=== PATIENT | male | born 1965 | race Caucasian/White ===

== ENCOUNTER 2017-04-02 14:34 | Observation (INO) | payer MEDICARE, OTHER ==
--- NOTE | ~2017-04-02 | DS ---
Unit #: [id number] #: [id number] Patient: ELISSA DAVENPORT [id number] [address] [place], [place] [address] [id number] I MR#: [id number] NAME: ELISSA DAVENPORT. ROOM: 213 Age: 51 Sex: M Admission Date: 04/02/2017 : 1965 Discharge Date: 04/03/2017 Attending Physician: Familia Mustafa M.D. Primary Care Physician: Jerald Coon M.D. DISCHARGE SUMMARY CHIEF COMPLAINT Teeth pain. HISTORY OF PRESENTING ILLNESS A 51-year-old male, who has a history of asthma, colitis, migraine, and chronic back pain, came with a complaint of teeth pain, dental pain, body aches, and abdominal pain. This started about 3 weeks ago according to the patient and it is gradually getting worse. He saw a dentist last week, was diagnosed with gingivitis, and was put on some antibiotic, but it is not getting better. The patient also complained of intermittent abdominal pain. He has been drinking beer more than normal. The patient keeps saying that he is living with his ex- and they are always fighting, and he may be poisoned. The patient's gums are swollen. He does complain of some nausea. He complains of abdominal pain, complains of joint pain, back pain, headache, no complain of diarrhea, no complain of vomiting, no complain of fever, chills, or rigors. PAST MEDICAL HISTORY 1. History of chronic pain. 2. History of asthma. 3. History of arthritis. 4. History of spondylitis. 5. History of diabetes mellitus type 2, which is borderline. 6. History of marijuana use. 7. History of sleep apnea. PAST SURGICAL HISTORY History of left knee surgery. ALLERGIES The patient is allergic to codeine, acetaminophen, Darvocet, and Imitrex. BODY AFTER ALLERGIES: FAMILY HISTORY The patient's mother has congestive heart failure. Father had CABG in his 60s. Siblings are in good health. SOCIAL HISTORY The patient is disabled, has sedentary lifestyle. He has a past history of smoking, quit some time ago. He used to drink heavily long time ago and now recently he started drinking more beer because of teeth pain. Uses marijuana off and on. Unit #: [id number] #: [id number] Patient: ELISSA DAVENPORT O HOME MEDICATIONS Humalog and . REVIEW OF SYSTEMS As per history of presenting illness. PHYSICAL EXAMINATION GENERAL: The patient is lying in bed, complaining of teeth pain. VITAL SIGNS: Blood pressure is 137/77, respiratory rate 18, pulse is 59, temperature 97.5, oxygen saturation is 97%. HEENT: Head is normocephalic. Eye movements are normal. The patient's joints are swollen. Pretty bad hygiene. I do not see any abscess, although the exam is limited. CHEST: Fair air entry. No additional sounds. CVS: S1 and S2 positive. Regular rhythm. ABDOMEN: Soft. No tenderness at this time. EXTREMITIES: Negative edema. SKIN: Needs to be normal. NEUROLOGIC: Awake, alert, oriented x3. No focal neurological deficit. DIAGNOSTIC STUDIES LABORATORY RESULTS: Done in ER shows WBC 7.4, hemoglobin 14.1, hematocrit 43.6, and platelet count of 154. Troponin less than 0.05. Sodium 137, potassium 3.9, chloride 103, bicarb 26, BUN 11, creatinine 0.7. Liver enzymes are normal. Lipase is elevated to 124 and later on in the evening 128, this morning the patient's lipase is 31, in normal range. IMAGING STUDIES: Chest x-ray was done, which shows minimal bibasilar atelectasis, otherwise negative chest. Next, CT scan of the abdomen and pelvis has been done, which shows no acute finding, no evidence for acute pancreatitis by CT, renal cyst circumferential, bladder wall thickening is similar to the previous study. HOSPITAL COURSE Mr. Elissa Davenport is a 51-year-old male, who was admitted to [facility] at med surg unit with diagnoses of; 1. Pancreatitis. 2. Gingivitis. 3. Diabetes mellitus, type 2. 4. Asthma. 5. Chronic back pain. The patient was admitted in the hospital. Dr. Ohara was consulted from [facility]. The patient's liver enzymes are normal, and lipase has come back to normal. His abdomen is soft, nontender. No peritoneal signs at all. Most likely, he had mild alcoholic pancreatitis. The patient's CT scan is normal. DISCHARGE MEDICATIONS The patient is being discharged home on following medications: 1. Augmentin 875 mg b.i.d. 2. Ultram 50 mg q.6 p.r.n. and continue rest of the home medications. The patient kept talking about arsenic poisoning. Arsenic level has been sent to the lab, but it is going to take a few days for the results to come back. The patient needs to follow up with primary care provider to get those results. DISCHARGE INSTRUCTIONS Unit #: [id number] #: [id number] Patient: ELISSA DAVENPORT The patient will be discharged home on above medications. The patient is stable. Medication as per med rec. Follow up with primary care provider in 3 to 4 days. Follow up with primary care provider for arsenic results. Follow up with dentist on Thursday. I have explained to him that it is very important for his dental hygiene and oral cavity hygiene because that is the most of the reason that patients get gingivitis. The patient is allergic to codeine. I have written a prescription for Ultram. I do not see any history of seizure disorder. Plan of care has been discussed with the patient. Dictated by... Brenda Portillo M.D. RAO/ricky TD: 04/04/2017 05:45 JOB #: [id number] DISCHARGE SUMMARY Page 1 of 1 X Brenda Portillo MD X DISCHARGE SUMMARY
--- NOTE | ~2017-04-02 | CR72 ---
[facility] A Service of [facility] RADIOLOGY TEXT RESULTS PATIENT: ELISSA RALPH LOCATION: A : 65 UNIT #: [id number] AGE: [address]: Familia Mustafa MD SEX: M ORDER DR: [id number] [facility] [address] [facility]. [place], [place] [address] [id number] I MR#: [id number] Acc #: [id number] NAME: ELISSA RALPH. : 1965 SEX: M STUDY DATE/TIME: 04/02/2017 13:30 UNIT: A ROOM: [facility] STUDY DESCRIPTION: CR Chest Single View Portable Attending Physician: Familia Mustafa M.D. Ordering Physician: Emory Ramirez M.D. Primary Care Physician: Jerald Coon M.D. MEDICAL IMAGING REPORT This report is preliminary unless electronic signature is present EXAM Portable chest 04/02/2017 INDICATION Shortness of air and chest pain that started this morning. Former smoker. FINDINGS AP portable chest compared with 02/17/2016. Cardiac and mediastinal contours are normal. There is some minimal atelectasis in the bases. The lungs otherwise are clear. No pneumothorax. There is degenerative disease in both AC joints. IMPRESSION Minimal bibasilar atelectasis, otherwise negative chest. Dictated by... Sky Sahni Jr., M.D. THIS IS AN ELECTRONICALLY VERIFIED REPORT Sky Sahni Jr., M.D. at 04/03/2017 8:52 AM JENNIFER/haylee TD: 04/02/2017 14:20 JOB #: [id number] MEDICAL IMAGING REPORT Page 1 of 1 COPY
--- NOTE | ~2017-04-02 | CT2 ---
[facility] A Service [facility] RADIOLOGY TEXT RESULTS PATIENT: ELISSA RALPH LOCATION: [facility] : [birth year] UNIT #: [id number] AGE: [address]: Familia Mustafa MD SEX: M ORDER DR: [id number] [id number] [facility]. [place], [place] [address] [id number] I MR#: [id number] Acc #: [id number] NAME: ELISSA RALPH. : 1965 SEX: M STUDY DATE/TIME: 04/03/2017 10:18 UNIT: [facility] ROOM: 213 STUDY DESCRIPTION: CT Abd and Pelv W Cont Attending Physician: Familia Mustafa M.D. Ordering Physician: Christopher Ohara M.D. Primary Care Physician: Jerald Coon M.D. MEDICAL IMAGING REPORT This report is preliminary unless electronic signature is present EXAM CT abdomen and pelvis with contrast. INDICATION Pancreatitis. Generalized abdominal pain for the past 2 months. PROCEDURE Contrast-enhanced CT of the abdomen and pelvis. This CT exam was performed with one or more of the following radiation dose reduction techniques: automatic exposure control, adjustment of mA and/or kV according to patient size, and iterative reconstruction. COMPARISON 05/06/2016 FINDINGS ABDOMEN WITH CONTRAST: Included lung bases are clear. The liver, spleen, adrenal glands, pancreas, gallbladder are unremarkable. No evidence for acute pancreatitis. There are scattered uncomplicated sigmoid diverticula. The bowel loops are nondilated. Appendix is normal. There are bilateral renal cysts, very similar to the previous study. Index cyst along the medial aspect of the right kidney measures 2.2 cm. PELVIS WITH CONTRAST: There is mild circumferential bladder wall thickening up to 6 mm. This is similar to the prior. No pelvic mass, fluid, or adenopathy. No aggressive appearing bone lesion. IMPRESSION 1. No acute findings. No evidence for acute pancreatitis by CT. 2. Renal cysts. [facility] A Service [facility] RADIOLOGY TEXT RESULTS PATIENT: ELISSA RALPH LOCATION: [facility] : 65 UNIT #: [id number] AGE: [address]: Familia Mustafa MD SEX: M ORDER DR: 3. Circumferential bladder wall thickening is similar to the previous study. May be related to component of outlet obstruction. Correlate for the possibility of cystitis. Dictated by... John Solomon M.D. THIS IS AN ELECTRONICALLY VERIFIED REPORT John Solomon M.D. at 04/06/2017 7:43 AM VINOD/thuy TD: 04/03/2017 13:35 JOB #: [id number] MEDICAL IMAGING REPORT Page 1 of 1 COPY
--- NOTE | ~2017-04-02 | CO ---
Unit #: [id number] #: [id number] Patient: ELISSA DAVENPORT [id number] [address] [place], [place] [address] [id number] I MR#: [id number] NAME: ELISSA DAVENPORT. ROOM: 213 Age: 51 Sex: M Admission Date: 04/02/2017 : 1965 Attending Physician: Familia Mustafa M.D. Primary Care Physician: Jerald Coon M.D. CONSULTATION REPORT HISTORY OF PRESENT ILLNESS Mr. Davenport is a 51-year-old white male, who complains of teeth pain and gingivitis. He has multiple allergies. He was seen in the emergency room, noted also to have nonspecific abdominal pain. He was nauseated. The patient underwent laboratory testing, which showed a slightly elevated serum lipase at 120. It was felt like he might have pancreatitis, so he was admitted thereof. He says his main issues are with his gums and mouth. He says he cannot eat or do anything except drink alcohol in order to relieve the pain. He has recently been increasing his alcohol consumption because of his gingivitis. ALLERGIES As listed per patient. MEDICATIONS He is on antacids at home. He has no other medications except he is diabetic and he is on Humalog. He has a history of asthma, but he is a smoker and as noted does drink alcohol. He denies any other illicit drug use. PHYSICAL EXAMINATION GENERAL: Cooperative, alert white male. HEENT: Clear. There is no jaundice. Pupils equal, reactive to light. CHEST: Clear. CARDIAC: Rhythm is regular. ABDOMEN: Soft, nontender. No masses. No peritoneal signs. No evidence of any surgical acute process. This patient may have mild alcoholic pancreatitis. We will check a CT scan on him. It is okay the patient may be able to be discharged. We will go ahead and put the patient on a low-fat diet after scan. Dictated by... Christopher Ohara M.D. ANAM/ricky TD: 04/04/2017 03:32 JOB #: [id number] Unit #: [id number] #: [id number] Patient: ELISSA DAVENPORT CONSULTATION REPORT Page 1 of 1 X Christopher Ohara MD CONSULTATION REPORT
--- NOTE | ~2017-04-02 | EKG ---
PATIENT: ELISSA RALPH UNIT #: [id number] Ventricular Rate: 60 BPM Atrial Rate: 60 BPM P-R Interval: 144 ms QRS Duration: 94 ms Q-T Interval: 424 ms QTC Calculation(Bezet): 424 ms P [place]: 55 degrees Calculated R [place]: 51 degrees Calculated T [place]: 32 degrees Diagnosis Line: Normal sinus rhythm Diagnosis Line: Normal ECG Diagnosis Line: When compared with ECG of 03-JUL-2015 22:02, Diagnosis Line: No significant change was found Diagnosis Line: Confirmed by BRANDON MOSQUERA MD ([id number]) on 04/05/2017 Diagnosis Line: 3:58:57 PM INTERPRETING MD: EVELINE COLEMAN
[2017-04-02 13:40] LABS: BASOPHIL% 0.6 % (0-2.5); EOSINOPHIL# 0.2 X10e3 (0-0.7); EOSINOPHIL% 2.2 % (0.0-7.0); HEMATOCRIT 43.6 % (38.0-50.0); LYMPHOCYTE# 1.8 X10e3 (1.0-3.5); LYMPHOCYTE% 24.9 % (17.0-45.0); MEAN CELL VOLUME 91.6 FL (83-96); MEAN CORPUSCULAR HEMOGLOBIN 29.5 PG (28-34); MEAN CORPUSCULAR HGB CONC 32.2 g/dL (30-36); MEAN PLATELET VOLUME 9.3 FL (6.5-11.5); MONOCYTE# 0.7 X10e3 (0-1.0); MONOCYTE% 9.4 % (3.0-12.0); NEUTROPHIL# 4.6 X10e3 (1.5-7.1); NEUTROPHIL% 62.9 % (40-75); PLATELET COUNT 154 X10e3 (140-420); RED BLOOD COUNT 4.76 X10e (3.90-5.60); RED CELL DISTRIBUTION WIDTH 13.6 % (11.0-15.5); WHITE BLOOD COUNT 7.4 X10e3 (4.0-10.5)
[2017-04-02 13:41] LABS: DIFF IND NO
[2017-04-02 14:08] LABS: ALBUMIN SERUM 4.2 g/dL (3.5-5.0); BILIRUBIN, DIRECT 0.1 mg/dL (0.0-0.2); BILIRUBIN,INDIRECT 0.4 mg/dL (0.0-0.9); BILIRUBIN,TOTAL 0.5 mg/dL (0.2-2.0); BUN/CREATININE RATIO 15.71; CALCIUM SERUM 8.8 mg/dL (8.4-10.2); CREATININE SERUM 0.7 mg/dL (0.6-1.4); GLOM FILT RATE Estimated 109.3 mL/min (>60); POTASSIUM 3.9 mmol/L (3.5-5.1); PROTEIN TOTAL SERUM 7.4 g/dL (6.0-8.3)
[2017-04-02 14:09] LABS: POC - CKMB 1.2 ng/mL (0.0-7.9); POC - TROPONIN <0.05 ng/mL (<=0.05)
[~2017-04-02 14:34] MED LIST: ALBUTEROL17 G1 IH; ALBUTEROL17 GM INH; ALBUTEROL17 GM NEB; ALPRAZOLAM PO; AUGMENTIN PO; BENZONATATE PO; CELEBREX PO; CIPRO PO; DIAZEPAM PO; ENDOCET 5-3251 EACH PO; FLEXERIL10 MG PO; FLOMAX0.4 MG PO; HUMALOG; HYDROCODONE; KLONOPIN PO; NAPROSYN500 MG PO; NORCO 7.5/325 T1 TAB PO; PERCOCET 7.5-31 EACH PO; PERCOCET PO; PHENERGAN25 MG PO; TYLOX 5/500 CAP1 CAP PO; ULTRAM PO; VALIUM10 MG PO; VIBRAMYCIN100 M1 PO
[2017-04-02 15:20] LABS: POC - CKMB 1.7 ng/mL (0.0-7.9); POC - TROPONIN <0.05 ng/mL (<=0.05)
[2017-04-02] MEDS ORDERED: HUMALOG100 UNIT/1 SUBQ (19:44)
[2017-04-03 05:49] LABS: BASOPHIL% 0.6 % (0-2.5); EOSINOPHIL# 0.2 X10e3 (0-0.7); HEMATOCRIT 42.4 % (38.0-50.0); HEMOGLOBIN 13.7 gm/dL (13.0-16.0); LYMPHOCYTE# 2.6 X10e3 (1.0-3.5); LYMPHOCYTE% 34.2 % (17.0-45.0); MEAN CELL VOLUME 91.9 FL (83-96); MEAN CORPUSCULAR HEMOGLOBIN 29.6 PG (28-34); MEAN CORPUSCULAR HGB CONC 32.2 g/dL (30-36); MEAN PLATELET VOLUME 9.5 FL (6.5-11.5); MONOCYTE# 0.6 X10e3 (0-1.0); MONOCYTE% 7.9 % (3.0-12.0); NEUTROPHIL# 4.2 X10e3 (1.5-7.1); NEUTROPHIL% 55.3 % (40-75); PLATELET COUNT 144 X10e3 (140-420); RED BLOOD COUNT 4.61 X10e (3.90-5.60); RED CELL DISTRIBUTION WIDTH 13.4 % (11.0-15.5); WHITE BLOOD COUNT 7.5 X10e3 (4.0-10.5)
[2017-04-03 06:04] LABS: DIFF IND NO
[2017-04-03 06:48] LABS: ALBUMIN SERUM 3.5 g/dL (3.5-5.0); BILIRUBIN,TOTAL 0.8 mg/dL (0.2-2.0); CALCIUM SERUM 8.4 mg/dL (8.4-10.2); CREATININE SERUM 0.5 mg/dL (0.6-1.4); GLOM FILT RATE Estimated 125.5 mL/min (>60); POTASSIUM 4.1 mmol/L (3.5-5.1); PROTEIN TOTAL SERUM 6.2 g/dL (6.0-8.3)
[2017-04-03] MEDS ORDERED: ULTRAM PO (15:31)
[2017-04-03] MEDS ORDERED: AUGMENTIN PO (15:32)
== END 2017-04-03 17:49 | disposition home or self-care (01) ==
LOC: CED 14:34 → CEDOF 17:30 → C2A 18:05
PROVIDERS: Emergency Medicine; Hospitalist
DX: K85.90 Acute pancreatitis without necrosis or infection, unspecified (principal); K05.10 Chronic gingivitis, plaque induced; E11.9 Type 2 diabetes mellitus without complications; Z79.4 Long term (current) use of insulin; J45.909 Unspecified asthma, uncomplicated; M54.9 Dorsalgia, unspecified; G89.29 Other chronic pain; F17.200 Nicotine dependence, unspecified, uncomplicated; Z88.5 Allergy status to narcotic agent; Z88.6 Allergy status to analgesic agent; Z82.49 Family history of ischemic heart disease and other diseases of the circulatory system
CPT/HCPCS: 36415; 71010; 74177; 80048; 80053; 80076; 82150; 82175; 82553; 82947; 83690; 84484; 85025; 93005; 96361; 96372; 96374; 96375; 96376; 99285; C9113; G0378; J1170; J1650; J1885; J2270; J2405; Q9967

== ENCOUNTER 2017-07-21 11:06 | Emergency (ER) | payer OTHER ==
[~2017-07-21 11:06] MED LIST changes: +HUMALOG100 UNIT/1 SUBQ
[2017-07-21] MEDS ORDERED: NO MEDICATIONS (11:08)
== END 2017-07-21 13:10 | disposition home or self-care (01) ==
LOC: SED 11:06
DX: S61.012A Laceration without foreign body of left thumb without damage to nail, initial encounter (principal); W45.8XXA Other foreign body or object entering through skin, initial encounter; Y92.096 Garden or yard of other non-institutional residence as the place of occurrence of the external cause
CPT/HCPCS: 12002; 99283

== ENCOUNTER 2017-07-30 08:00 | Emergency (ER) | payer OTHER ==
[~2017-07-30] VITALS: Ht 167.6 cm; Wt 81.6 kg
--- NOTE | ~2017-07-30 | CR116 ---
[facility] A Service of [facility] RADIOLOGY TEXT RESULTS PATIENT: ELISSA RALPH LOCATION: [facility] : [birth year] UNIT #: [id number] AGE: [address]: Josefina Cueva SEX: M ORDER DR: [id number] [facility] [address] [place], [place] [address] [id number] E MR#: [id number] Acc #: [id number] NAME: ELISSA RALPH : 1965 SEX: M STUDY DATE/TIME: 07/30/2017 08:49 UNIT: [facility] ROOM: STUDY DESCRIPTION: CR Finger 2 View Thumb Lt Attending Physician: Josefina Cueva P.A.-C. Ordering Physician: Josefina Cueva P.A.-C. Primary Care Physician: Jerald Coon M.D. MEDICAL IMAGING REPORT This report is preliminary unless electronic signature is present EXAM Left thumb 3 views 07/30/2017 0849 hours CLINICAL HISTORY 52-year-old man with laceration to the thumb 1 week ago with placement of sutures. Patient presents with pain, redness and swelling today. COMPARISON None. FINDINGS AP, lateral and oblique views demonstrate soft tissue swelling of the thumb particularly at the level of the first metacarpal phalangeal joint. There is no fracture, dislocation, foreign body, or soft tissue gas. IMPRESSION Soft tissue swelling of the thumb particularly in the area of the first metacarpophalangeal joint with no fracture, dislocation, or foreign body. No soft tissue gas. Dictated by... Denisha Gonzalez M.D. THIS IS AN ELECTRONICALLY VERIFIED REPORT Denisha Gonzalez M.D. at 07/30/2017 12:52 PM WESLEY/doreen TD: 07/30/2017 10:21 JOB #: [id number] MEDICAL IMAGING REPORT Page 1 of 1 COPY
[~2017-07-30 08:00] MED LIST changes: +NO MEDICATIONS
== END 2017-07-30 10:50 | disposition home or self-care (01) ==
LOC: CED 08:00
DX: L03.012 Cellulitis of left finger (principal); J45.909 Unspecified asthma, uncomplicated; G43.909 Migraine, unspecified, not intractable, without status migrainosus; Z87.891 Personal history of nicotine dependence; Z88.5 Allergy status to narcotic agent; Z88.8 Allergy status to other drugs, medicaments and biological substances
CPT/HCPCS: 29130; 73140; 96372; 99283; J0696